=== PATIENT | female | born 1960 | race Two or more races ===

== ENCOUNTER 2017-07-16 23:27 | Emergency (ER) | payer SELFPAY | END 2017-07-16 23:56 | LOC: ED 23:39 | DX: Z02.9 Encounter for administrative examinations, unspecified (principal) ==

== ENCOUNTER 2017-08-03 01:56 | Emergency (ER) | payer OTHER ==
[~2017-08-03] VITALS: Ht 154.9 cm; Wt 85.3 kg
[2017-08-03] MEDS ORDERED: FAMOTIDINE 20 MG/2 ML IVP ONE (02:30)
[2017-08-03] MEDS ORDERED: SODIUM CHLORIDE FLUSH 10ML SYR IVF ONE (02:30)
[2017-08-03] MEDS ORDERED: ONDANSETRON 2MG/ML, 2ML IVPush ONE (02:30)
[2017-08-03] MEDS ORDERED: MAALOX/HYOSCYAMINE/LIDOCAINE 45 ML BTL PO ONE (02:30)
[2017-08-03] MEDS ORDERED: SODIUM CHLORIDE 0.9% 1,000ML IVBOLUS ONE (02:30)
[2017-08-03] MEDS ORDERED: ONDANSETRON 2MG/ML, 2ML ONE (02:32)
[2017-08-03] MEDS ORDERED: MAALOX/HYOSCYAMINE/LIDOCAINE 45 ML BTL ONE (02:32)
[2017-08-03 02:54] VITALS: BP 158/89
[2017-08-03 03:05] LABS: BASOPHILS # (AUTO) 0.03 x10^3/uL (0-0.1); BASOPHILS % (AUTO) 0 % (0-1); EOSINOPHILS # (AUTO) 0.17 x10^3/uL (0-0.4); EOSINOPHILS % (AUTO) 2 % (1-7); LYMPHOCYTES # (AUTO) 2.76 x10^3/uL (1-3.4); LYMPHOCYTES % (AUTO) 28 % (22-44); MD NO; MEAN CORPUSCULAR HEMOGLOBIN 30.2 pg (27.0-34.8); MEAN CORPUSCULAR HGB CONC 33.9 g/dL (32.4-35.8); MEAN CORPUSCULAR VOLUME 89.2 fL (80-100); MONOCYTES # (AUTO) 0.57 x10^3/uL (0.2-0.8); MONOCYTES % (AUTO) 6 % (2-9); NEUTROPHILS # (AUTO) 6.26 x10^3/uL (1.8-6.8); NEUTROPHILS % (AUTO) 64 % (42-75); PLATELET COUNT 320 x10^3/uL (130-400); RED BLOOD COUNT 5.17 x10^6/uL (3.82-5.3); RED CELL DISTRIBUTION WIDTH 13.8 % (9.6-15.2)
[2017-08-03] MEDS ORDERED: PROMETHAZINE 25 MG/ML, 1ML ONE (03:08)
[2017-08-03] MEDS ORDERED: FAMOTIDINE 20 MG/2 ML ONE (03:09)
[2017-08-03 03:13] LABS: ALANINE AMINOTRANSFERASE 22 U/L (12-78); ALBUMIN 3.4 g/dL (3.4-5.0); ANION GAP 10 mmol/L (5-15); CALCIUM 8.1 mg/dL (8.5-10.1); CHLORIDE 109 mmol/L (98-107); CREATININE 0.84 mg/dL (0.55-1.02)
[2017-08-03 03:15] LABS: ALKALINE PHOSPHATASE 122 U/L (45-117); BILIRUBIN,TOTAL 0.3 mg/dL (0.2-1.0); TOTAL PROTEIN 7.7 g/dL (6.4-8.2)
[2017-08-03] MEDS ORDERED: HYDROmorphone 2 MG/ML, 1ML ONE (03:27)
[2017-08-03] MEDS ORDERED: HYDROmorphone 2 MG/ML, 1ML IVPush PRN (03:30)
[2017-08-03] MEDS ORDERED: PROMETHAZINE 25 MG/ML, 1ML IV ONE (03:30)
[2017-08-03] MEDS ORDERED: PLEASE ENTER ALLERGIES MC SCH (03:30)
== END 2017-08-03 04:55 | disposition home or self-care (01) ==
LOC: ED 02:29
DX: K25.3 Acute gastric ulcer without hemorrhage or perforation (principal); R19.7 Diarrhea, unspecified; K80.20 Calculus of gallbladder without cholecystitis without obstruction
CPT/HCPCS: 36415; 76700; 80053; 83690; 85025; 86677; 96374; 96375; 99285; J1170; J2405; J2550; J7030; S0028

== ENCOUNTER 2017-10-12 06:22 | Day surgery (SDC) | payer OTHER ==
[~2017-10-12] VITALS: Ht 154.9 cm; Wt 83.6 kg
[~2017-10-12 06:22] MED LIST: SUPPLEMENTS PO; [UNRECOGNIZED DRUG - OTHER] PO
[2017-10-12] MEDS ORDERED: BUPIVACAINE/PF 0.5% ONE (06:46)
[2017-10-12] MEDS ORDERED: EPINEPHRINE 1 MG/ML, 1ML ONE (06:47)
[2017-10-12] MEDS ORDERED: LACTATED RINGERS 1,000 ML IV SCH ×2 (07:19→09:20)
[2017-10-12] MEDS ORDERED: ONDANSETRON ODT 8 MG PO ONE (07:30)
[2017-10-12] MEDS ORDERED: GABAPENTIN 300 MG CAPSULE PO ONE (07:30)
[2017-10-12] MEDS ORDERED: ACETAMINOPHEN 500 MG TABLET PO ONE (07:30)
[2017-10-12] MEDS ORDERED: LIDOCAINE-MPF 1%, 2ML INFIL ONE (07:30)
[2017-10-12 07:32] VITALS: BP 116/83
[2017-10-12] MEDS ORDERED: FENTANYL PF 100 MCG/2ML ONE (07:57)
[2017-10-12] MEDS ORDERED: MIDAZOLAM 1 MG/ML, 2ML ONE (07:57)
[2017-10-12] MEDS ORDERED: LIDOCAINE GEL 2%, 5ML ONE (08:01)
[2017-10-12] MEDS ORDERED: GLYCOPYRROLATE 0.2MG/1ML, 5ML ONE (09:07)
[2017-10-12] MEDS ORDERED: PROPOFOL 10 MG/ML, 20ML ONE (09:07)
[2017-10-12] MEDS ORDERED: ONDANSETRON 2MG/ML, 2ML ONE (09:07)
[2017-10-12] MEDS ORDERED: CEFAZOLIN 1,000 MG ONE (09:07)
[2017-10-12] MEDS ORDERED: NEOSTIGMINE 1 MG/ML, 10ML ONE (09:07)
[2017-10-12] MEDS ORDERED: LIDOCAINE 2%, 10ML ONE (09:07)
[2017-10-12] MEDS ORDERED: DEXAMETHASONE 4 MG/ML, 1ML ONE (09:07)
[2017-10-12] MEDS ORDERED: ROCURONIUM 10 MG/ML,10ML ONE (09:07)
[2017-10-12] MEDS ORDERED: SUCCINYLCHOLINE 20 MG/ML, 10ML ONE (09:07)
[2017-10-12] MEDS ORDERED: LORazepam 2 MG/ML, 1ML IVPush PRN (09:30)
[2017-10-12] MEDS ORDERED: DIAZEPAM 5 MG/ML, 2ML IVPush PRN (09:30)
[2017-10-12] MEDS ORDERED: HYDROcodone/APAP 5/325 TABLET PO PRN (09:30)
[2017-10-12] MEDS ORDERED: PROMETHAZINE 12.5 MG SUPP PR PRN (09:30)
[2017-10-12] MEDS ORDERED: FENTANYL PF 100 MCG/2ML IV PRN (09:30)
[2017-10-12] MEDS ORDERED: MEPERIDINE/PF 25MG/0.5ML IVPush PRN (09:30)
[2017-10-12] MEDS ORDERED: hydrALAzine 20 MG/ML, 1ML IV PRN (09:30)
[2017-10-12] MEDS ORDERED: ALBUTEROL/IPRATROPIUM 2.5MG/0.5MG, 3 ML NPPB PRN (09:30)
[2017-10-12] MEDS ORDERED: LABETALOL 5MG/ML, 20ML IV PRN (09:30)
[2017-10-12] MEDS ORDERED: PROMETHAZINE 25 MG/ML, 1ML IV PRN (09:30)
[2017-10-12] MEDS ORDERED: OXYcodone 5 MG/5 ML ORAL.SOL UDC PO PRN (09:30)
[2017-10-12] MEDS ORDERED: ALBUTEROL SULFATE 2.5 MG/3 ML NPPB PRN (09:30)
[2017-10-12] MEDS ORDERED: MIDAZOLAM 1 MG/ML, 2ML IV PRN (09:30)
[2017-10-12] MEDS ORDERED: ONDANSETRON 2MG/ML, 2ML IVPush PRN ×2 (09:30)
[2017-10-12] MEDS ORDERED: METOCLOPRAMIDE 5 MG/ML, 2ML IV PRN (09:30)
[2017-10-12] MEDS ORDERED: MORPHINE SULFATE 4 MG/ML, 1ML IV PRN (09:30)
[2017-10-12] MEDS ORDERED: morphine SULFATE 10 MG/ML, 1ML IVPush PRN (09:30)
[2017-10-12] MEDS ORDERED: KETOROLAC 30 MG/1 ML ONE (16:31)
== END 2017-10-12 11:50 ==
LOC: OUT 06:22
PROVIDERS: ATTEND Thoracic Surgery (Cardiothoracic Vascular Surgery)
DX: K80.10 Calculus of gallbladder with chronic cholecystitis without obstruction (principal)
CPT/HCPCS: 47562; 88304; J0171; J0330; J0690; J1100; J1885; J2250; J2405; J2704; J2710; J3010; J3490; J7120; Q0162